=== PATIENT | male | born 1980 | race Caucasian/White ===

== ENCOUNTER 2016-10-17 00:06 | Emergency (ER) | payer OTHER ==
--- NOTE | 2016-10-17 02:02 | ED NURSING NOTES ---
Clinical Report - Nurses [facility] [address] [place] [address] 10/17/2016 0:06 Patient: SONY PENNY TRIAGE Triage time 01:00. Acuity: LEVEL 4. 01:10 10/17/16. Alert. No acute distress. SEPSIS SCREEN: Sepsis Screen. Negative (no infection suspected/documented). JEFFY COMA SCORE: [place] Coma Scale: 15- eyes open spontaneously (4); best verbal response- oriented x 4 (5); best motor response- obeys commands (6). --01:10 Cindy Quarles R.N. 01:00 10/17/16. BP: 116/73 taken on the left arm, while sitting. HR: 74. RR: 14. O2 saturation: 96% on room air. Temp: 98.5 F. Pain level now: 09/19. --01:10 Cindy Quarles R.N. Chief Complaint: (L knee pain, L shoulder pain). --02:49 Cindy Quarles R.N. Weight: 99.7 kg stated. Height/Length: 74 inches Per Patient. BMI: 28.2. --01:05 Cindy Quarles R.N. Medications Loperamide HCl Oral. --01:04 Cindy Quarles R.N. CloNIDine HCl Oral. --01:05 Cindy Quarles R.N. Gabapentin Oral. --01:05 Cindy Quarles R.N. Allergies Halfan. --01:05 Cindy Quarles R.N. History Arrived by private vehicle. Historian: patient. This occurred today. ( Patient states he fell asleep on the floor last night and woke up with shoulder and knee pain that "started making me limp". He also states "my girlfriend and I have also been feeling cold-like symptoms"). PAST MEDICAL HX: Tetanus status: unknown. Immunizations: up-to-date. SOCIAL HX: Light tobacco smoker- less than 1/2 a pack per day. History of drug use: heroin, methamphetamines, marijuana. Under influence in ED. No alcohol use. FALL RISK ASSESSMENT: Fall risk assessment completed. No fall risk identified. NUTRITIONAL RISK ASSESSMENT: The nutritional risk assessment revealed no deficiencies. FUNCTIONAL ASSESSMENT: Functional assessment: no impairments noted. LEARNING NEEDS ASSESSMENT: The learning needs assessment revealed no barriers. SKIN INTEGRITY ASSESSMENT: Skin integrity risk assessment completed. No skin integrity risk identified. --01:10 Cindy Quarles R.N. PROBLEMS: Substance Abuse. Ulna Fracture. Abrasion(s). Back Pain. Contusion. Fall. Tetanus Status. Immunizations. --01: Cindy Quarles R.N. Hypertension [RuleOut]. --01: Cindy Quarles R.N. ADDITIONAL SURGERIES: Tympanostomy Tubes. --01: Cindy Quarles R.N. Interventions ID band on patient. To treatment room. --01: Cindy Quarles R.N. PHYSICAL ASSESSMENT 01:10/17/16. Ambulatory to room. GENERAL / NEURO / PSYCH: Alert. Oriented X 4. Appears in no acute distress. RESPIRATORY: Respirations not labored. CVS: Pulses within normal limits. Capillary refill less than 2 seconds. EXTREMITIES: Extremities exhibit normal ROM. Neuro-vascular status intact to the extremity. SKIN: Skin intact. Skin is warm and dry. --01:11 Cindy Quarles R.N. NURSING PROGRESS NOTES 01:10/17/16. Two patient identifiers checked. Call light placed in reach. Side rails up x 1. Bed placed in lowest position. Brakes of bed on. Patient ready for evaluation- chart flagged and notification provided. --01:11 Cindy Quarles R.N. 02:05 10/17/2016 Toradol (Ketorolac Tromethamine) IM 60 mg given. Given in the right anterior lateral thigh. Allergies verified and confirmed 5 rights. --02:05 Cindy Quarles R.N. DISPOSITION / DISCHARGE 02:14 10/17/16. No learning barriers present. Discharge instructions provided and reviewed with the patient. Reviewed warnings. Reviewed medication(s). Treatments reviewed. Reviewed referrals. Patient and hand meat salter verbalized understanding. Written instructions provided in Burmese. The patient was discharged home and accompanied by hand meat salter. He left the Emergency Department ambulatory and via private vehicle. Cement Truck Loader driving. --02:14 Cindy Quarles R.N. 02:12 10/17/16. BP: 113/61. HR: 67. RR: 15. O2 saturation: 98% on room air. Temp: deferred. Pain level now: 09/19. --02:14 Cindy Quarlse R.N. Locked/Released at 10/17/2016 2:50 by Cindy Quarles R.N.
--- NOTE | 2016-10-17 02:02 | ED NURSING NOTES ---
Clinical Report - Nurses [facility] [address] [place] [address] 10/17/2016 0:06 Patient: SONY PENNY TRIAGE Triage time 01:00. Acuity: LEVEL 4. 01:10 10/17/16. Alert. No acute distress. SEPSIS SCREEN: Sepsis Screen. Negative (no infection suspected/documented). JEFFY COMA SCORE: [place] Coma Scale: 15- eyes open spontaneously (4); best verbal response- oriented x 4 (5); best motor response- obeys commands (6). --01:10 Cindy Quarles R.N. 01:00 10/17/16. BP: 116/73 taken on the left arm, while sitting. HR: 74. RR: 14. O2 saturation: 96% on room air. Temp: 98.5 F. Pain level now: 09/19. --01:10 Cindy Quarles R.N. Chief Complaint: (L knee pain, L shoulder pain). --02:49 Cindy Quarles R.N. Weight: 99.7 kg stated. Height/Length: 74 inches Per Patient. BMI: 28.2. --01:05 Cindy Quarles R.N. Medications Loperamide HCl Oral. --01:04 Cindy Quarles R.N. CloNIDine HCl Oral. --01:05 Cindy Quarles R.N. Gabapentin Oral. --01:05 Cindy Quarles R.N. Allergies Halfan. --01:05 Cindy Quarles R.N. History Arrived by private vehicle. Historian: patient. This occurred today. ( Patient states he fell asleep on the floor last night and woke up with shoulder and knee pain that "started making me limp". He also states "my girlfriend and I have also been feeling cold-like symptoms"). PAST MEDICAL HX: Tetanus status: unknown. Immunizations: up-to-date. SOCIAL HX: Light tobacco smoker- less than 1/2 a pack per day. History of drug use: heroin, methamphetamines, marijuana. Under influence in ED. No alcohol use. FALL RISK ASSESSMENT: Fall risk assessment completed. No fall risk identified. NUTRITIONAL RISK ASSESSMENT: The nutritional risk assessment revealed no deficiencies. FUNCTIONAL ASSESSMENT: Functional assessment: no impairments noted. LEARNING NEEDS ASSESSMENT: The learning needs assessment revealed no barriers. SKIN INTEGRITY ASSESSMENT: Skin integrity risk assessment completed. No skin integrity risk identified. --01:10 Cindy Quarles R.N. PROBLEMS: Substance Abuse. Ulna Fracture. Abrasion(s). Back Pain. Contusion. Fall. Tetanus Status. Immunizations. --01: Cindy Quarles R.N. Hypertension [RuleOut]. --01: Cindy Quarles R.N. ADDITIONAL SURGERIES: Tympanostomy Tubes. --01: Cindy Quarles R.N. Interventions ID band on patient. To treatment room. --01: Cindy Quarles R.N. PHYSICAL ASSESSMENT 01:10/17/16. Ambulatory to room. GENERAL / NEURO / PSYCH: Alert. Oriented X 4. Appears in no acute distress. RESPIRATORY: Respirations not labored. CVS: Pulses within normal limits. Capillary refill less than 2 seconds. EXTREMITIES: Extremities exhibit normal ROM. Neuro-vascular status intact to the extremity. SKIN: Skin intact. Skin is warm and dry. --01:11 Cindy Quarles R.N. NURSING PROGRESS NOTES 01:10/17/16. Two patient identifiers checked. Call light placed in reach. Side rails up x 1. Bed placed in lowest position. Brakes of bed on. Patient ready for evaluation- chart flagged and notification provided. --01:11 Cindy Quarles R.N. 02:05 10/17/2016 Toradol (Ketorolac Tromethamine) IM 60 mg given. Given in the right anterior lateral thigh. Allergies verified and confirmed 5 rights. --02:05 Cindy Quarles R.N. DISPOSITION / DISCHARGE 02:14 10/17/16. No learning barriers present. Discharge instructions provided and reviewed with the patient. Reviewed warnings. Reviewed medication(s). Treatments reviewed. Reviewed referrals. Patient and aquatics group fitness instructor verbalized understanding. Written instructions provided in Swedish. The patient was discharged home and accompanied by aquatics group fitness instructor. He left the Emergency Department ambulatory and via private vehicle. Core Analysis Operator driving. --02:14 Cindy Quarles R.N. 02:12 10/17/16. BP: 113/61. HR: 67. RR: 15. O2 saturation: 98% on room air. Temp: deferred. Pain level now: 09/19. --02:14 Cindy Quarles R.N. Locked/Released at 10/17/2016 2:50 by Cindy Quarles R.N.
--- NOTE | 2016-10-17 02:02 | ED CLINICAL REPORT ---
Clinical Report - Physicians/Mid Levels [facility] [address] [place] [address] 10/17/2016 0:06 Patient: SONY PENNY Time Seen: 00:55; initial patient contact. Arrived- By private vehicle. Historian- patient. HISTORY OF PRESENT ILLNESS Chief Complaint: Injury to the right arm. The injury happened last night. Occurred at home. (Passed out after using heroin on his R side on a hard floor). Patient is experiencing moderate pain. Patient denies injury to the head or neck. Patient also notes injury to the right lower extremity (leg). REVIEW OF SYSTEMS No swelling, tingling, numbness or weakness. All systems otherwise negative, except as recorded above. PAST HISTORY Substance Abuse. Ulna Fracture. Abrasion(s). Back Pain. Contusion. Fall. Tetanus Status. Immunizations. Hypertension ADDITIONAL SURGERIES: Tympanostomy Tubes. SOCIAL HISTORY Current every day smoker. History of heavy IV drug use: heroin, methamphetamines, marijuana. Recently used drugs just prior to arrival. Under influence in ED. ADDITIONAL NOTES The nursing notes have been reviewed. PHYSICAL EXAM Vital Signs: 10/17/2016 01:00 BP: 116/73. HR: 74. RR: 14. O2 saturation: 96%. Temp: 98.5 F. Pain level now: 6/10. Have been reviewed as normal. Appearance: Alert. Oriented X3. No acute distress. Skin: Skin intact. Skin warm and dry. Normal skin color. Extremities: Right arm: mild tenderness. Neurovascular intact distally. No erythema, swelling, abrasion or deformity. Upper extremity otherwise negative. Extremities otherwise negative. Neuro, Vascular and Tendons: Vascular status intact. Sensation intact. Motor intact. Tendon function intact. Neuro: Oriented X 3. No motor deficit. No sensory deficit. PROGRESS AND PROCEDURES Disposition: Discharged home in good and improved condition. Condition: good. CLINICAL IMPRESSION Acute inflammatory tendonitis in the right elbow. Single contusion to the right knee. INSTRUCTIONS Your Current Medications: CONTINUE TAKING THE FOLLOWING MEDICATIONS: CloNIDine HCl Oral. Gabapentin Oral. Loperamide HCl Oral. Prescription Medications: Ketorolac 10 mg tablets: take 1 tablet every 6 hours as needed for pain or stiffness. Dispense fifteen (15). No refill. Follow-up: Follow up with your doctor in about three days. Call for an appointment. Screening today revealed the patient's blood pressure to be in the normal range. (Electronically signed by Jonathan Macedo Dr. 10/18/2016 20:47)
--- NOTE | 2016-10-17 02:02 | ED ORDER SUMMARY ---
..... Patient: SONY PENNY OrderSheet [facility] VisitID: [id number] [address] [place] [address] 36y, M Registration Date/Time: 10/17/2016 ORDER SHEET Weight: 99.7 kg (stated) Allergies: Halfan GENERAL ORDERS: MEDICATION ORDERS: Toradol IM 60 mg (NOW) (01:58 10/17/2016 Edin Smith) (Ack 1:59 Mony R.N.) (2:05 Mony R.N.) IV FLUIDS: ORDER SHEET NOTES: [Electronically signed by Cindy Quarles R.N. (02:50 10/17/2016)] [Electronically signed by Jonathan Macedo Dr. (20:47 10/18/2016)] [Electronically locked/signed by Cindy Quarles R.N. (02:50 10/17/2016)]
--- NOTE | 2016-10-17 02:02 | ED ORDER SUMMARY ---
..... Patient: SONY PENNY OrderSheet [facility] VisitID: [id number] [address] [place] [address] 36y, M Registration Date/Time: 10/17/2016 ORDER SHEET Weight: 99.7 kg (stated) Allergies: Halfan GENERAL ORDERS: MEDICATION ORDERS: Toradol IM 60 mg (NOW) (01:58 10/17/2016 Edin Smith) (Ack 1:59 Mony R.N.) (2:05 Mony R.N.) IV FLUIDS: ORDER SHEET NOTES: [Electronically signed by Cindy Quarles R.N. (02:50 10/17/2016)] [Electronically signed by Jonathan Macedo Dr. (20:47 10/18/2016)] [Electronically locked/signed by Cindy Quarles R.N. (02:50 10/17/2016)]
--- NOTE | 2016-10-17 02:02 | ED CLINICAL REPORT ---
Clinical Report - Physicians/Mid Levels [facility] [address] [place] [place] [address] 10/17/2016 0:06 Patient: SONY PENNY Time Seen: 00:55; initial patient contact. Arrived- By private vehicle. Historian- patient. HISTORY OF PRESENT ILLNESS Chief Complaint: Injury to the right arm. The injury happened last night. Occurred at home. (Passed out after using heroin on his R side on a hard floor). Patient is experiencing moderate pain. Patient denies injury to the head or neck. Patient also notes injury to the right lower extremity (leg). REVIEW OF SYSTEMS No swelling, tingling, numbness or weakness. All systems otherwise negative, except as recorded above. PAST HISTORY Substance Abuse. Ulna Fracture. Abrasion(s). Back Pain. Contusion. Fall. Tetanus Status. Immunizations. Hypertension ADDITIONAL SURGERIES: Tympanostomy Tubes. SOCIAL HISTORY Current every day smoker. History of heavy IV drug use: heroin, methamphetamines, marijuana. Recently used drugs just prior to arrival. Under influence in ED. ADDITIONAL NOTES The nursing notes have been reviewed. PHYSICAL EXAM Vital Signs: 10/17/2016 01:00 BP: 116/73. HR: 74. RR: 14. O2 saturation: 96%. Temp: 98.5 F. Pain level now: 6/10. Have been reviewed as normal. Appearance: Alert. Oriented X3. No acute distress. Skin: Skin intact. Skin warm and dry. Normal skin color. Extremities: Right arm: mild tenderness. Neurovascular intact distally. No erythema, swelling, abrasion or deformity. Upper extremity otherwise negative. Extremities otherwise negative. Neuro, Vascular and Tendons: Vascular status intact. Sensation intact. Motor intact. Tendon function intact. Neuro: Oriented X 3. No motor deficit. No sensory deficit. PROGRESS AND PROCEDURES Disposition: Discharged home in good and improved condition. Condition: good. CLINICAL IMPRESSION Acute inflammatory tendonitis in the right elbow. Single contusion to the right knee. INSTRUCTIONS Your Current Medications: CONTINUE TAKING THE FOLLOWING MEDICATIONS: CloNIDine HCl Oral. Gabapentin Oral. Loperamide HCl Oral. Prescription Medications: Ketorolac 10 mg tablets: take 1 tablet every 6 hours as needed for pain or stiffness. Dispense fifteen (15). No refill. Follow-up: Follow up with your doctor in about three days. Call for an appointment. Screening today revealed the patient's blood pressure to be in the normal range. (Electronically signed by Jonathan Macedo Dr. 10/18/2016 20:47)
--- NOTE | 2016-10-18 20:48 | ED MAR SUMMARY ---
..... Medication Administration Record [facility] [address] [place] [address] Patient: SONY PENNY Visit ID: [id number] 36y, M Weight: 99.7 kg Height/Length: 74 in BMI: 28.2 ALLERGIES: Halfan Given 02:05 10/17/2016 Cindy Quarles R.N. Medication Administered: TORADOL [IM] (KETOROLAC TROMETHAMINE), Dose: 60 mg IM. Medication Ordered: Toradol IM 60 mg (NOW).
--- NOTE | 2016-10-18 20:48 | ED MED RECONCILIATION SUMMARY ---
Patient: SONY PENNY Medication Reconciliation Report [facility] VisitID: [id number] [address] [place] [address] 36y, M Registration Date/Time: 10/17/2016 Weight: 99.7 kg Height/Length: 74 in. BMI: 28.2 ALLERGIES: Halfan The patient's Home Medications are listed below: CONTINUE TAKING THE FOLLOWING MEDICATIONS: CloNIDine HCl Oral Gabapentin Oral Loperamide HCl Oral The source(s) of the original Home Medication information: Not obtained. The following Medications were given to the patient in the Emergency Department: Toradol [IM] IM 60 mg, administered: 10/17/2016 2:05:00 AM The following Medications were prescribed to the patient: Ketorolac 10 mg tablets: take 1 tablet every 6 hours as needed for pain or stiffness. Dispense fifteen (15). No refill. -- Jonathan Macedo Dr.
--- NOTE | 2016-10-18 20:48 | ED MED RECONCILIATION SUMMARY ---
Patient: SONY PENNY Medication Reconciliation Report [facility] VisitID: [id number] [address] [place] [address] 36y, M Registration Date/Time: 10/17/2016 Weight: 99.7 kg Height/Length: 74 in. BMI: 28.2 ALLERGIES: Halfan The patient's Home Medications are listed below: CONTINUE TAKING THE FOLLOWING MEDICATIONS: CloNIDine HCl Oral Gabapentin Oral Loperamide HCl Oral The source(s) of the original Home Medication information: Not obtained. The following Medications were given to the patient in the Emergency Department: Toradol [IM] IM 60 mg, administered: 10/17/2016 2:05:00 AM The following Medications were prescribed to the patient: Ketorolac 10 mg tablets: take 1 tablet every 6 hours as needed for pain or stiffness. Dispense fifteen (15). No refill. -- Jonathan Macedo Dr.
--- NOTE | 2016-10-18 20:48 | ED DISCHARGE INSTRUCTIONS ---
Patient: SONY PENNY General Instructions [facility] VisitID: [id number] [place] [address] 36y, M Registration Date/Time: 10/17/2016 Acute inflammatory tendonitis in the right elbow. Single contusion to the right knee. INSTRUCTIONS Your Current Medications: CONTINUE TAKING THE FOLLOWING MEDICATIONS: CloNIDine HCl Oral. Gabapentin Oral. Loperamide HCl Oral. Prescription Medications: Ketorolac 10 mg tablets: take 1 tablet every 6 hours as needed for pain or stiffness. Dispense fifteen (15). No refill. Follow-up: Follow up with your doctor in about three days. Call for an appointment. Screening today revealed the patient's blood pressure to be in the normal range. ADDITIONAL INFORMATION Contusion,Soft Tissue You have a CONTUSION, which is a bruise with swelling and some bleeding under the skin. There are no broken bones. This injury takes a few days to a few weeks to heal. Home Care: 1) Keep the injured part elevated to reduce pain and swelling. This is especially important during the first 48 hours. 2) Make an ice pack (ice cubes in a plastic bag, wrapped in a towel) and apply for 20 minutes every 1-2 hours the first day. Continue this 3-4 times a day until the pain and swelling goes away. 3) You may use acetaminophen (Tylenol) or ibuprofen (Motrin, Advil) to control pain, unless another pain medicine was prescribed. [ NOTE : If you have chronic liver or kidney disease or ever had a stomach ulcer or GI bleeding, talk with your doctor before using these medicines.] Follow Up with your doctor or this facility if you are not improving within the next THREE days. [NOTE: If X-rays were taken, they will be reviewed by a radiologist. You will be notified of any new findings that may affect your care.] Get Prompt Medical Attention if any of the following occur: -- Pain or swelling increases -- Injured arm or leg becomes cold, blue, numb or tingly -- Redness, warmth or drainage from the skin Tennis Elbow Muscles connect to bones by thick fibrous cords (tendons). When the muscles are overused by repeated motion, the tendons may become inflamed and painful. This condition is called tendonitis. Tennis elbow is a form of tendonitis that occurs when the forearm muscles are used repeatedly in a twisting motion. It is also called lateral epicondylitis. Pain from tennis elbow occurs primarily on the outside of the elbow. But the pain can spread into the forearm and wrist. The elbow may also be swollen and tender to the touch. The pain may increase with arm movement or simple activities. Bending your wrist back, shaking hands, or turning a doorknob may cause pain. The pain often gets worse after several weeks or months. Sometimes you may feel pain when your arm is still. Tennis players who use a backhand stroke with poor technique are more prone to tennis elbow. Of course, playing tennis is only one cause of tennis elbow. Many common activities, such as hammering, painting, and raking, can also cause tennis elbow. Besides tennis players, people at risk include dance professor, gardeners, musicians, and dentists. Sometimes patients develop this condition without any obvious activity that would cause the injury. Treatment includes rest of the arm and anti-inflammatory medicines. Special splints help reduce symptoms. Symptoms should improve after 4-6 weeks of rest. Steroid injections may be used if there is no improvement with rest and splinting alone. After pain is relieved, activities must be modified so the symptoms do not return. Physical therapy, with stretching, range of motion and strengthening exercises may be prescribed. These treatments are successful in most (85% of cases). Patients with continued symptoms for six months may benefit from surgical treatment. Home Care: Rest your elbow as needed and protect it from movement that causes pain. You may be advised to use a forearm splint at night to reduce morning symptoms. Your doctor may recommend a special wrap or splint to compress the muscles of the forearm and reduce pain during daytime activities. As your symptoms improve, begin to increase movement at the elbow. Apply an ice pack (ice cubes in a plastic bag, wrapped in a towel) over the injured area for 20 minutes every 1-2 hours the first day. Continue with ice packs 3-4 times a day for the next two days, then as needed for the relief of pain and swelling. unless another pain medicine was prescribed. If you cannot take these medicines, you may use acetaminophen (Tylenol). [NOTE: If you have chronic kidney disease or ever had a stomach ulcer or GI bleeding, talk with your doctor before using these medicines.] After healing, avoid the motion that caused your pain or learn to move in a way that causes less stress on the tendon. Continued use of a forearm wrap may prevent recurrence. Follow Up with your doctor, or as advised by our staff, if your symptoms are not starting to improve after one week of treatment. Return Promptly or contact your doctor if any of the following occur: Redness over the painful area Increasing pain or swelling at the elbow Unexplained fever over 100.0F (37.8C)) Ketorolac Tromethamine Oral tablet What is this medicine? KETOROLAC (whitney toe ROLE ak) is a non-steroidal anti-inflammatory drug (NSAID). It is used for a short while to treat moderate to severe pain, including pain after surgery. It should not be used for more than 5 days. How should I use this medicine? Take this medicine by mouth with a full glass of water. Follow the directions on the prescription label. Take your medicine at regular intervals. Do not take your medicine more often than directed. Do not take more than the recommended dose. A special MedGuide will be given to you by the pharmacist with each prescription and refill. Be sure to read this information carefully each time. Talk to your communications director regarding the use of this medicine in children. While this drug may be prescribed for children as young as 16 years of age for selected conditions, precautions do apply. Patients over 65 years old may have a stronger reaction and need a smaller dose. What side effects may I notice from receiving this medicine? Side effects that you should report to your doctor or health career technical supervisor as soon as possible: allergic reactions like skin rash, itching or hives, swelling of the face, lips, or tongue black or tarry stools breathing problems changes in vision chest pain high blood pressure nausea or vomiting redness, blistering, peeling or loosening of the skin, including inside the mouth severe abdominal pain slurred speech or weakness on one side of the body unexplained weight gain or swelling unusual bleeding or bruising unusually weak or tired yellowing of eyes or skin Side effects that usually do not require medical attention (report to your doctor or health career technical supervisor if they continue or are bothersome): diarrhea dizziness headache heartburn What may interact with this medicine? Do not take this medicine with any of the following medications: aspirin and aspirin-like medicines cidofovir methotrexate NSAIDs, medicines for pain and inflammation, like ibuprofen or naproxen pemetrexed probenecid This medicine may also interact with the following medications: alcohol alendronate alprazolam carbamazepine cyclosporine diuretics flavocoxid fluoxetine ginkgo lithium medicines for high blood pressure like enalapril medicines that affect platelets like pentoxifylline medicines that treat or prevent blood clots like heparin, warfarin muscle relaxants phenytoin steroid medicines like prednisone or cortisone thiothixene What if I miss a dose? If you miss a dose, take it as soon as you can. If it is almost time for your next dose, take only that dose. Do not take double or extra doses. Where should I keep my medicine? Keep out of the reach of children. Store at room temperature between 20 and 25 degrees C (68 and 77 degrees F). Throw away any unused medicine after the expiration date. What should I tell my health care provider before I take this medicine? They need to know if you have any of these conditions: asthma bleeding problems like hemophilia cigarette smoker drink more than 3 alcohol containing drinks a day heart disease or circulation problems such as heart failure or leg edema (fluid retention) high blood pressure kidney disease liver disease stomach bleeding or ulcers an unusual or allergic reaction to ketorolac, aspirin, other NSAIDs, other medicines, foods, dyes, or preservatives or trying to get breast-feeding What should I watch for while using this medicine? Tell your doctor or health career technical supervisor if your pain does not get better. Talk to your doctor before taking another medicine for pain. Do not treat yourself. This medicine does not prevent heart attack or stroke. In fact, this medicine may increase the chance of a heart attack or stroke. The chance may increase with longer use of this medicine and in people who have heart disease. If you take aspirin to prevent heart attack or stroke, talk with your doctor or health career technical supervisor. Do not take medicines such as ibuprofen and naproxen with this medicine. Side effects such as stomach upset, nausea, or ulcers may be more likely to occur. Many medicines available without a prescription should not be taken with this medicine. This medicine can cause ulcers and bleeding in the stomach and intestines at any time during treatment. Do not smoke cigarettes or drink alcohol. These increase irritation to your stomach and can make it more susceptible to damage from this medicine. Ulcers and bleeding can happen without warning symptoms and can cause . You may get drowsy or dizzy. Do not drive, use machinery, or do anything that needs mental alertness until you know how this medicine affects you. Do not stand or sit up quickly, especially if you are an older patient. This reduces the risk of dizzy or fainting spells. This medicine can cause you to bleed more easily. Try to avoid damage to your teeth and gums when you brush or floss your teeth. You have been given the following additional information: Contusion, Soft Tissue Tennis Elbow Ketorolac Tromethamine Oral tablet (Electronically signed by Jonathan Macedo Dr. 10/18/2016 20:47)
--- NOTE | 2016-10-18 20:48 | ED MAR SUMMARY ---
..... Medication Administration Record [facility] [address] [place] [address] Patient: SONY PENNY Visit ID: [id number] 36y, M Weight: 99.7 kg Height/Length: 74 in BMI: 28.2 ALLERGIES: Halfan Given 02:05 10/17/2016 Cindy Quarles R.N. Medication Administered: TORADOL [IM] (KETOROLAC TROMETHAMINE), Dose: 60 mg IM. Medication Ordered: Toradol IM 60 mg (NOW).
== END 2016-10-17 02:14 | disposition home or self-care (01) ==
LOC: ED SRH 00:06
DX: M77.8 Other enthesopathies, not elsewhere classified (principal); S80.01XA Contusion of right knee, initial encounter; W18.30XA Fall on same level, unspecified, initial encounter; X50.1XXA Overexertion from prolonged static or awkward postures, initial encounter; Y93.9 Activity, unspecified; Y99.9 Unspecified external cause status; Y92.009 Unspecified place in unspecified non-institutional (private) residence as the place of occurrence of the external cause; I10 Essential (primary) hypertension; F17.200 Nicotine dependence, unspecified, uncomplicated; F11.10 Opioid abuse, uncomplicated; Z79.899 Other long term (current) drug therapy